=== PATIENT | female | born 2000 | race Caucasian/White ===

== ENCOUNTER 2019-02-13 20:00 | Outpatient (CLI) | payer BC | END 2019-03-28 20:35 | disposition home or self-care (01) | LOC: OBT 20:00 → L-D 03-28 18:34 → OBT 03-28 20:35 | DX: O36.8130 Decreased fetal movements, third trimester, not applicable or unspecified (principal); Z3A.38 38 weeks gestation of pregnancy | CPT/HCPCS: 76818 ==

== ENCOUNTER 2019-03-30 15:58 | Outpatient (CLI) | payer BC ==
[2019-03-30 18:00] LABS: ADD UMIC NO; UR ASCORBIC ACID NEGATIVE (NEGATIVE); UR BILIRUBIN (Dip) NEGATIVE (NEGATIVE); UR BLOOD (Dip) NEGATIVE (NEGATIVE); UR CLARITY CLEAR (CLEAR); UR COLOR STRAW (YELLOW); UR GLUCOSE (Dip) NEGATIVE (NEGATIVE); UR KETONES (Dip) NEGATIVE (NEGATIVE); UR LEUKOCYTE ESTERASE (Dip) NEGATIVE Leu/ul (NEGATIVE); UR NITRITE (Dip) NEGATIVE (NEGATIVE); UR SPECIFIC GRAVITY (Dip) 1.004 (1.003-1.030); UR TOTAL PROTEIN (Dip) NEGATIVE (NEGATIVE); UR UROBILINOGEN (Dip) NEGATIVE (NEGATIVE)
== END 2019-03-30 22:00 | disposition home or self-care (01) ==
LOC: OBT 15:58 → L-D 15:58 → OBT 22:00
DX: O41.03X0 Oligohydramnios, third trimester, not applicable or unspecified (principal); Z3A.39 39 weeks gestation of pregnancy
CPT/HCPCS: 76818; 81003; 87086

== ENCOUNTER 2019-04-05 09:36 | Inpatient (IN) | payer BC ==
[2019-04-05] MEDS ORDERED: LACTATED RINGER'S 1,000 ML IV (10:23)
[2019-04-05] MEDS ORDERED: METHYLERGONOVINE 0.2 MG INJ IM (10:30)
[2019-04-05] MEDS ORDERED: IBUPROFEN 600 MG TAB PO (10:30)
[2019-04-05] MEDS ORDERED: LIDOCAINE 1% (MPF) 30 ML INJ INJ (10:30)
[2019-04-05] MEDS ORDERED: CARBOPROST 250 MCG INJ IM (10:30)
[2019-04-05] MEDS ORDERED: OXYTOCIN 30 UNITS/LR 500 ML IV (10:30)
[2019-04-05] MEDS ORDERED: MISOPROSTOL 200 MCG TAB PR (10:30)
[2019-04-05] MEDS ORDERED: BUTORPHANOL 2 MG INJ IV ×2 (10:30)
[2019-04-05 10:35] LABS: ADD MAN DIFF? NO
[2019-04-05 10:42] LABS: WHITE BLOOD COUNT 10.5 10^3/ul (4.8-10.8)
[2019-04-05 10:42] LABS: BASOPHIL # 0.1 10^3/ul (0.0-0.1); BASOPHILS % 0.5 % (0.0-2.0); EOSINOPHILS # 0.1 10^3/ul (0.0-0.5); EOSINOPHILS % 0.7 % (0.0-7.0); HEMATOCRIT 35.8 % (37.0-47.0); HEMOGLOBIN 11.8 g/dl (12.0-16.0); LYMPHOCYTES # 1.6 10^3/ul (0.8-2.9); LYMPHOCYTES % 14.8 % (18.0-55.0); MEAN CORPUSCULAR HEMOGLOBIN 29.7 pg (29.0-33.0); MEAN CORPUSCULAR VOLUME 90.2 fl (72.0-104.0); MEAN PLATELET VOLUME 11.4 fl (7.4-10.4); MONOCYTE # 0.9 10^3/ul (0.3-0.9); MONOCYTES % 8.7 % (0.0-13.0); NEUTROPHIL # 7.8 10^3/ul (1.6-7.5); NEUTROPHILS % 74.7 % (30.0-74.0); PLATELET COUNT 258 10^3/UL (140-415); RED BLOOD COUNT 3.97 10^6/ul (4.20-5.40); RED CELL DISTRIBUTION WIDTH 13.2 % (11.5-14.5)
[2019-04-05 11:00] LABS: INR 0.85; PROTIME 11.7 Sec (11.9-14.9); PT RATIO 0.9
[2019-04-05 11:01] LABS: PARTIAL THROMBOPLASTIN TIME 26.4 Sec (23.0-35.0)
[2019-04-05] MEDS: LACTATED RINGER'S 1,000 ML IV ×2 (11:10→19:02)
[2019-04-05] MEDS: MISOPROSTOL 50 MCG CAPSULE PO ×2 (12:30→16:29)
[2019-04-05] MEDS: AMPICILLIN 2 GM/NS (PMX) 100 ML IV (12:30)
[2019-04-05 13:13] LABS: HEPATITIS B SURFACE ANTIGEN NEGATIVE (NEGATIVE)
[2019-04-05] MEDS: AMPICILLIN 1 GM/NS (PMX) 50 ML IV ×2 (16:29→20:34)
[2019-04-05 22:28] LABS: RAPID PLASMA REAGIN NONREACTIVE (NR)
[2019-04-05] MEDS ORDERED: FENTAnyl 2MCG/ML-ROPIV 0.2% 100 ML (23:10)
[2019-04-05] MEDS ORDERED: FENTAnyl 2MCG/ML-ROPIV 0.2% 100 ML BAG EPI (23:30)
[2019-04-05] MEDS ORDERED: NALOXONE (0.4 MG/ML) INJ IV (23:30)
[2019-04-06] MEDS: AMPICILLIN 1 GM/NS (PMX) 50 ML IV ×2 (00:17→06:01)
[2019-04-06] MEDS: LACTATED RINGER'S 1,000 ML IV (00:17)
[2019-04-06] MEDS: OXYTOCIN 30 UNITS/LR 500 ML IV ×3 (06:07→09:09)
[2019-04-06] MEDS ORDERED: OXYTOCIN 30 UNITS/LR 500 ML IV ×2 (06:30→12:30)
[2019-04-06] MEDS ORDERED: BENZOCAINE 20% 56 ML SPRAY TOP (06:30)
[2019-04-06] MEDS ORDERED: HYDROCODONE/APAP (5/325) TAB PO ×3 (06:30→12:30)
[2019-04-06] MEDS ORDERED: LANOLIN HPA 1 PKT TOP ×2 (06:30→12:30)
[2019-04-06] MEDS: IBUPROFEN 600 MG TAB PO ×3 (08:32→23:39)
[2019-04-06] MEDS: CARBOPROST 250 MCG INJ IM (09:11)
[2019-04-06] MEDS: METHYLERGONOVINE 0.2 MG INJ IM (09:11)
[2019-04-06] MEDS ORDERED: BUTORPHANOL 2 MG INJ (09:18)
[2019-04-06] MEDS: MISOPROSTOL 200 MCG TAB PR (09:19)
[2019-04-06] MEDS: BUTORPHANOL 2 MG INJ IV (09:28)
[2019-04-06] MEDS: SOD CHLORIDE 0.9% 1,000 ML IV (09:30)
[2019-04-06] MEDS ORDERED: MIDAZOLAM 1 MG/ML 2 ML INJ (09:34)
[2019-04-06] MEDS ORDERED: CEFAZOLIN 1 GM INJ (09:34)
[2019-04-06] MEDS ORDERED: PROPOFOL 20 ML (09:34)
[2019-04-06] MEDS ORDERED: FENTAnyl 50 MCG/ML VIAL (09:34)
[2019-04-06] MEDS ORDERED: METOCLOPRAMIDE 10 MG INJ (09:51)
[2019-04-06] MEDS ORDERED: ONDANSETRON 4 MG INJ (09:51)
[2019-04-06] MEDS ORDERED: DEXAMETHASONE 4 MG/ML 1 ML INJ (09:51)
[2019-04-06] MEDS ORDERED: EPHEDrine 25 MG/5 ML SYG ×2 (09:51→10:46)
[2019-04-06] MEDS ORDERED: LABETALOL HCL 20MG INJ IV (10:00)
[2019-04-06] MEDS ORDERED: OXYCODONE/ACETAMINOPHEN (5/325) TAB PO (10:00)
[2019-04-06] MEDS ORDERED: ALBUMIN HUMAN 5% 250 ML IV (10:00)
[2019-04-06] MEDS ORDERED: FENTAnyl 50 MCG/ML VIAL IV ×2 (10:00)
[2019-04-06] MEDS ORDERED: METOCLOPRAMIDE 10 MG INJ IV (10:00)
[2019-04-06] MEDS ORDERED: DIPHENHYDRAMINE 50 MG INJ IV (10:00)
[2019-04-06] MEDS ORDERED: MEPERIDINE 25 MG INJ IV (10:00)
[2019-04-06] MEDS ORDERED: EPHEDrine 25 MG/5 ML SYG IV (10:00)
[2019-04-06] MEDS ORDERED: HYDROmorphONE 1 MG/5 ML IV SYRINGE IV ×3 (10:00)
[2019-04-06] MEDS ORDERED: ONDANSETRON 4 MG INJ IV (10:00)
[2019-04-06] MEDS ORDERED: ALBUMIN HUMAN 5% 250 ML (10:42)
[2019-04-06] MEDS ORDERED: HETASTARCH 6% NACL 500 ML (10:42)
[2019-04-06 11:12] LABS: PLATELET COUNT 139 10^3/UL (140-415)
[2019-04-06] MEDS ORDERED: CEFAZOLIN 2 GM/50 ML (PMX) 50 ML IVPB (11:30)
[2019-04-06 11:31] LABS: INR 1.29; PROTIME 16.2 Sec (11.9-14.9); PT RATIO 1.3
[2019-04-06 11:32] LABS: PARTIAL THROMBOPLASTIN TIME 33.2 Sec (23.0-35.0); THROMBIN TIME 14.4 SEC (13.8-19.1)
[2019-04-06] MEDS: LACTATED RINGER'S 1,000 ML IV* ×3 (11:53→22:26)
[2019-04-06] MEDS: ACETAMINOPHEN 1000MG/100ML IV 100 ML IVPB (12:06)
[2019-04-06 12:24] LABS: ADD MAN DIFF? NO
[2019-04-06] MEDS ORDERED: MISOPROSTOL 200 MCG TAB PR (12:30)
[2019-04-06] MEDS ORDERED: CARBOPROST 250 MCG INJ IM (12:30)
[2019-04-06] MEDS ORDERED: METHYLERGONOVINE 0.2 MG INJ IM (12:30)
[2019-04-06] MEDS ORDERED: DIBUCAINE 1% 30 GM OINT TOP (12:30)
[2019-04-06] MEDS ORDERED: ZOLPIDEM 5 MG TAB PO (12:30)
[2019-04-06 12:43] LABS: WHITE BLOOD COUNT 16.1 10^3/ul (4.8-10.8)
[2019-04-06 12:43] LABS: ABNORMAL IP MESSAGE 1; BASOPHILS % 0.2 % (0.0-2.0); EOSINOPHILS % 0.1 % (0.0-7.0); HEMATOCRIT 15.8 % (37.0-47.0); LYMPHOCYTES # 0.5 10^3/ul (0.8-2.9); LYMPHOCYTES % 3.1 % (18.0-55.0); MEAN CORPUSCULAR HEMOGLOBIN 30.5 pg (29.0-33.0); MEAN CORPUSCULAR HGB CONC 33.5 g/dl (32.0-37.0); MEAN CORPUSCULAR VOLUME 90.8 fl (72.0-104.0); MEAN PLATELET VOLUME 11.8 fl (7.4-10.4); MONOCYTE # 0.7 10^3/ul (0.3-0.9); MONOCYTES % 4.5 % (0.0-13.0); NEUTROPHIL # 14.6 10^3/ul (1.6-7.5); NEUTROPHILS % 91.2 % (30.0-74.0); PLATELET COUNT 142 10^3/UL (140-415); RED BLOOD COUNT 1.74 10^6/ul (4.20-5.40); RED CELL DISTRIBUTION WIDTH 13.3 % (11.5-14.5)
[2019-04-06 12:54] LABS: POSITIVE DIFF @See below
[2019-04-06 12:55] LABS: HEMOGLOBIN 5.3 g/dl (12.0-16.0); PATH REVIEW? YES
[2019-04-06 14:23] LABS: LYMPHOCYTES #M 0.8 10^3/ul (0.8-2.9); LYMPHOCYTES % (M) 5 % (18-55); SEGMENTED NEUTROPHILS (M) % 95 % (30-74)
[2019-04-06] MEDS ORDERED: IBUPROFEN 600 MG TAB PO (15:30)
[2019-04-06 16:02] LABS: IMMEDIATE SPIN CROSSMATCH 1
[2019-04-06] MEDS: CEPHALEXIN 500 MG CAP PO ×2 (17:52→23:39)
[2019-04-06] MEDS: MAGNESIUM HYDROXIDE 30ML CUP PO (21:00)
[2019-04-06] MEDS: SENNA/DOCUSATE NA (8.6MG/50MG) TAB PO (22:25)
[2019-04-06] MEDS: WITCH HAZEL/GLYCERIN PAD PR (23:39)
[2019-04-06] MEDS: BENZOCAINE 20% 56 ML SPRAY TOP (23:39)
[2019-04-07] MEDS: CEPHALEXIN 500 MG CAP PO ×3 (05:14→18:20)
[2019-04-07] MEDS: IBUPROFEN 600 MG TAB PO ×3 (05:14→18:00)
[2019-04-07] MEDS: LACTATED RINGER'S 1,000 ML IV* ×3 (05:14→21:22)
[2019-04-07 07:39] LABS: ADD MAN DIFF? NO
[2019-04-07 07:43] LABS: ABNORMAL IP MESSAGE 1; BASOPHILS % 0.2 % (0.0-2.0); EOSINOPHILS # 0.1 10^3/ul (0.0-0.5); EOSINOPHILS % 0.9 % (0.0-7.0); LYMPHOCYTES # 2.2 10^3/ul (0.8-2.9); LYMPHOCYTES % 15.5 % (18.0-55.0); MEAN CORPUSCULAR HEMOGLOBIN 29.8 pg (29.0-33.0); MEAN CORPUSCULAR HGB CONC 32.8 g/dl (32.0-37.0); MEAN CORPUSCULAR VOLUME 90.9 fl (72.0-104.0); MEAN PLATELET VOLUME 11.5 fl (7.4-10.4); NEUTROPHIL # 10.6 10^3/ul (1.6-7.5); NEUTROPHILS % 75.9 % (30.0-74.0); PLATELET COUNT 133 10^3/UL (140-415); RED BLOOD COUNT 1.98 10^6/ul (4.20-5.40); RED CELL DISTRIBUTION WIDTH 15.3 % (11.5-14.5)
[2019-04-07 07:46] LABS: HEMOGLOBIN 5.9 g/dl (12.0-16.0); POSITIVE DIFF @See below
[2019-04-07] MEDS: SENNA/DOCUSATE NA (8.6MG/50MG) TAB PO ×2 (09:00→20:36)
[2019-04-07] MEDS: MAGNESIUM HYDROXIDE 30ML CUP PO ×2 (09:00→20:36)
[2019-04-07] MEDS: SOD CHLORIDE 0.9% 1,000 ML IV (10:00)
[2019-04-07] MEDS: FERROUS SULFATE (EC) 325 MG TAB PO (16:00)
[2019-04-07 17:02] LABS: IMMEDIATE SPIN CROSSMATCH 1 4
[2019-04-07] MEDS: PRENATAL VITAMIN PO (18:00)
[2019-04-08] MEDS: IBUPROFEN 600 MG TAB PO ×3 (00:07→12:43)
[2019-04-08] MEDS: CEPHALEXIN 500 MG CAP PO ×3 (00:07→12:43)
[2019-04-08] MEDS: WITCH HAZEL/GLYCERIN PAD PR (03:34)
[2019-04-08] MEDS: LACTATED RINGER'S 1,000 ML IV* (04:29)
[2019-04-08 08:00] LABS: ADD MAN DIFF? NO
[2019-04-08 08:10] LABS: BASOPHIL # 0.1 10^3/ul (0.0-0.1); BASOPHILS % 0.4 % (0.0-2.0); EOSINOPHILS # 0.1 10^3/ul (0.0-0.5); HEMATOCRIT 24.7 % (37.0-47.0); HEMOGLOBIN 8.1 g/dl (12.0-16.0); MEAN CORPUSCULAR HEMOGLOBIN 29.5 pg (29.0-33.0); MEAN CORPUSCULAR HGB CONC 32.8 g/dl (32.0-37.0); MEAN CORPUSCULAR VOLUME 89.8 fl (72.0-104.0); MEAN PLATELET VOLUME 11.7 fl (7.4-10.4); MONOCYTE # 0.9 10^3/ul (0.3-0.9); MONOCYTES % 7.1 % (0.0-13.0); NEUTROPHIL # 9.8 10^3/ul (1.6-7.5); NUCLEATED RED BLOOD CELLS% 0.2 /100WBC (0.0-0.0); PLATELET COUNT 155 10^3/UL (140-415); RED BLOOD COUNT 2.75 10^6/ul (4.20-5.40); RED CELL DISTRIBUTION WIDTH 15.4 % (11.5-14.5)
[2019-04-08] MEDS: VARICELLA VACCINE LIVE/PF 1,350 UNIT/0.5 ML ML SC* (09:00)
[2019-04-08] MEDS ORDERED: DIPHTH/TET/ACEL PERTUSS (ADULT) 0.5 ML VIAL IM* (09:00)
[2019-04-08] MEDS: MEASLES,MUMPS,RUBELLA VACCINE INJ SC* (09:00)
[2019-04-08] MEDS: FERROUS SULFATE (EC) 325 MG TAB PO (09:23)
[2019-04-08] MEDS: MAGNESIUM HYDROXIDE 30ML CUP PO (09:23)
[2019-04-08] MEDS: SENNA/DOCUSATE NA (8.6MG/50MG) TAB PO (09:24)
[2019-04-08] MEDS: PRENATAL VITAMIN PO (09:24)
== END 2019-04-08 14:50 | disposition home or self-care (01) | DRG 806 ==
LOC: PP1 04-06 08:43 → L-D 09:36 → PP1 04-06 17:35
PROVIDERS: Obstetrics & Gynecology; Pediatrics Neonatal-Perinatal Medicine
PROC: 10E0XZZ Delivery of Products of Conception, External Approach (ICD-10-PCS; principal; 2019-04-06)
PROC: 0KQM0ZZ Repair Perineum Muscle, Open Approach (ICD-10-PCS; 2019-04-06)
PROC: 30233L1 Transfusion of Nonautologous Fresh Plasma into Peripheral Vein, Percutaneous Approach (ICD-10-PCS; 2019-04-06)
PROC: 30233N1 Transfusion of Nonautologous Red Blood Cells into Peripheral Vein, Percutaneous Approach (ICD-10-PCS; 2019-04-06)
PROC: 30233K1 Transfusion of Nonautologous Frozen Plasma into Peripheral Vein, Percutaneous Approach (ICD-10-PCS; 2019-04-06)
DX: O70.1 Second degree perineal laceration during delivery (principal); D62 Acute posthemorrhagic anemia; Z37.0 Single live birth; O99.02 Anemia complicating childbirth; O48.0 Post-term pregnancy; Z3A.40 40 weeks gestation of pregnancy; O69.81X0 Labor and delivery complicated by cord around neck, without compression, not applicable or unspecified
CPT/HCPCS: 36430; 62322; 76815; 82962; 85025; 85049; 85610; 85670; 85730; 86592; 86850; 86900; 86901; 86920; 87340; 90716; 93005; 99464